=== PATIENT | female | born 1950 | race African-American/Black ===

== ENCOUNTER 2020-01-30 17:10 | Inpatient (IN) | payer MEDICARE ==
--- NOTE | 2020-01-30 17:33 | ER Document Report ---
ED General - General Chief Complaint: Shortness Of Breath Stated Complaint: SHORTNESS OF BREATH Time Seen by Provider: 01/30/20 17:32 Primary Care Provider: TIFFANY AYALA MD [Primary Care Provider] - Follow up as needed - [facility] Notes: 69-year-old female presents with shortness of breath. Patient states that she is diagnosed with Covid over a week ago, she has her swab results with her which were collected on 01/22. She reports that she has had shortness of breath the entire time she has been infected, there is progressively worsening and is at its worse today. She feels like her chest is tight and she cannot catch her breath. She has not had much to eat or drink as well. She states she has a hi story of COPD, diabetes and hypertension. She is a former smoker. She had a phone visit with her PCP today and was advised to come to the emergency department. - Related Data Allergies/Adverse Reactions: No Known Allergies Allergy (Verified 01/30/20 18:08) Past Medical History - General Information source: Patient - Social History Smoking Status: Former Smoker Family History: Reviewed & Not Pertinent Review of Systems - Review of Systems Constitutional: Fever EENT: No symptoms reported Cardiovascular: denies: Chest pain Respiratory: Cough, Short of breath Gastrointestinal: denies: Abdominal pain Genitourinary: No symptoms reported Female Genitourinary: No symptoms reported Musculoskeletal: Muscle pain Skin: No symptoms reported Hematologic/Lymphatic: No symptoms reported Neurological/Psychological: No symptoms reported Physical Exam - Vital signs Vitals: Temp Pulse Resp BP Pulse Ox 99.0 F 89 20 145/82 H 81 L 01/30/20 17:26 01/30/20 17:26 01/30/20 17:26 01/30/20 17:26 01/30/20 17:26 - General General appearance: Alert In distress: Moderate - HEENT Head: Normocephalic, Atraumatic Extraocular movements intact: Yes Pupils: PERRL Neck: Supple - Respiratory Respiratory status: Tachypnea Chest status: Nontender Breath sounds: Wheezing - Generalized Notes: Able to speak in full sentences though she does become visibly more short of breath - Cardiovascular Rhythm: Regular Heart sounds: Normal auscultation - Abdominal Inspection: Obese Tenderness: Nontender - Extremities General lower extremity: No: Edema - Neurological Neuro grossly intact: Yes Cognition: Normal Orientation: AAOx4 - Psychological Associated symptoms: Normal affect - Skin Skin Temperature: Warm Course - Re-evaluation Re-evalutation: 69-year-old female diagnosed with Covid on 01/22, here with progressively worsening shortness of breath. Has history of COPD, diabetes and hypertension. On exam she has diffuse wheezing, she appears visibly short of breath. She was hypoxic 81% on room air. Nasal cannula was applied and sats improved, she does not wear oxygen at home. Suspect that the Covid is causing a COPD exacerbation. Will start with duo nebs, Decadron and magnesium. Would be a candidate for a superimposed pneumonia, check chest x-ray. 01/30/20 19:07 ElectraNo leukocytosis or left shift lites within normal limits. Creatinine within normal limits. Mild transaminitis. Elevated CRP and D-dimer, these are likely reflective of her known Covid infection, however given the hypoxia have ordered a CT chest to assure that no PE is present. Patient will still require admission regardless of result. 01/30/20 19:[address] Li for admission - Vital Signs Vital signs: Temp Pulse Resp BP Pulse Ox 99.0 F 89 20 145/82 H 97 01/30/20 17:26 01/30/20 17:26 01/30/20 18:00 01/30/20 17:26 01/30/20 18:00 - Laboratory Result Diagrams: 01/30/20 17:43 01/30/20 17:43 Laboratory results interpreted by me: 01/30/20 01/30/20 01/30/20 17:43 17:43 17:43 Hct 35.9 L RDW 14.7 H D-Dimer 3.19 H AST 100 H ALT 57 H C-Reactive Protein 242.1 H - Diagnostic Test Radiology reviewed: Image reviewed, Reports reviewed - EKG Interpretation by Me Additional EKG results interpreted by me: EKG is interpreted by me. Sinus rhythm, rate 80. Narrow QRS, borderline prolon ged QT interval. Nonspecific ST changes. No STEMI. Discharge - Discharge Clinical Impression: Acute respiratory disease due to COVID-19 virus, COPD exacerbation Disposition: ADMITTED INPATIENT Admitting Provider: Guillermo (Hospitalist) Unit Admitted: Telemetry Referrals: TIFFANY AYALA MD [Primary Care Provider] - Follow up as needed
[2020-01-30] MEDS ORDERED: DEXAMETHASONE SOD PHOSPHATE INJ 4 MG/1 ML VIAL IV ONE (17:40)
[2020-01-30] MEDS ORDERED: IPRATROPIUM/ALBUTEROL 0.5-2.5 MG/3 ML AMPUL NEB ONE ×2 (17:40→19:02)
[2020-01-30] MEDS ORDERED: MAGNESIUM SULFATE/D5W 1 GM/100 ML RTUPB IV ONE (17:41)
[2020-01-30 18:08] LABS: ABSOLUTE BASOPHILS # (AUTO) 0.1 10^3/uL (0.0-0.2); ABSOLUTE EOSINOPHILS # (AUTO) 0.2 10^3/uL (0.0-0.6); ABSOLUTE LYMPHOCYTES (AUTO) 2.6 10^3/uL (0.5-4.7); ABSOLUTE NEUT (AUTO) 6.4 10^3/uL (1.7-8.2); BASOPHILS % (AUTO) 0.7 % (0-2); EOSINOPHILS % (AUTO) 1.7 % (0-6); HEMATOCRIT 35.9 % (36.0-47.0); HEMOGLOBIN 12.5 g/dL (12.0-15.5); LYMPHOCYTES % (AUTO) 25.6 % (13-45); MEAN CORPUSCULAR HEMOGLOBIN 28.8 pg (27.0-33.4); MEAN CORPUSCULAR HGB CONC 34.8 g/dL (32.0-36.0); MEAN CORPUSCULAR VOLUME 83 fl (80-97); MONOCYTES % (AUTO) 10.1 % (3-13); PLATELET COUNT 439 10^3/uL (150-450); RED BLOOD COUNT 4.34 10^6/uL (3.72-5.28); RED CELL DISTRIBUTION WIDTH 14.7 % (11.5-14.0); SEGMENTED NEUTROPHILS % (AUTO) 61.9 % (42-78); TOTAL CELLS COUNTED % (AUTO) 100 %; WHITE BLOOD COUNT 10.3 10^3/uL (4.0-10.5)
[2020-01-30 18:27] LABS: ALBUMIN 3.8 g/dL (3.5-5.0); ALKALINE PHOSPHATASE 99 U/L (38-126); ANION GAP 8 (5-19); ASPARTATE AMINO TRANSFERASE 100 U/L (14-36); BILIRUBIN,DIRECT 0.3 mg/dL (0.0-0.4); BILIRUBIN,TOTAL 0.6 mg/dL (0.2-1.3); BLOOD UREA NITROGEN 12 mg/dL (7-20); CARBON DIOXIDE 28 mmol/L (22-30); CHLORIDE 107 mmol/L (98-107); GLUCOSE 90 mg/dL (75-110); POTASSIUM 3.9 mmol/L (3.6-5.0); TOTAL PROTEIN 7.6 g/dL (6.3-8.2)
[2020-01-30 18:38] LABS: C-REACTIVE PROTEIN 242.1 mg/L (<10.0)
--- NOTE | 2020-01-30 18:47 | RADIOLOGY REPORT (SQ) ---
EXAM DESCRIPTION: CHEST SINGLE VIEW IMAGES COMPLETED DATE/TIME: 01/30/2020 5:59 pm REASON FOR STUDY: shortness of breath COMPARISON: None. EXAM PARAMETERS: NUMBER OF VIEWS: One view. TECHNIQUE: Single frontal radiographic view of the chest acquired. RADIATION DOSE: NA LIMITATIONS: None. FINDINGS: LUNGS AND PLEURA: Slight haziness in the left lower lung field. MEDIASTINUM AND HILAR STRUCTURES: No masses. Contour normal. HEART AND VASCULAR STRUCTURES: Heart normal in size. Normal vasculature. BONES: No acute findings. HARDWARE: None in the chest. OTHER: No other significant finding. IMPRESSION: Cannot exclude pneumonia in the left lower lung field. TECHNICAL DOCUMENTATION: JOB ID: [id number] 2010 [employer]- All Rights Reserved Reading location - IP/workstation name: [email or web address]
--- NOTE | 2020-01-30 19:49 | EKG REPORT ---
SEVERITY:- BORDERLINE ECG - SINUS RHYTHM BORDERLINE T WAVE ABNORMALITIES BORDERLINE PROLONGED QT INTERVAL : Confirmed by: Js Felix MD 30-Jan-2020 19:49:02
--- NOTE | 2020-01-30 20:06 | RADIOLOGY REPORT (SQ) ---
EXAM DESCRIPTION: CTA CHEST IMAGES COMPLETED DATE/TIME: 01/30/2020 7:46 pm REASON FOR STUDY: +COVID, hypoxia, eval PE COMPARISON: Chest x-ray 01/30/2020 TECHNIQUE: CT scan of the chest performed using helical scanning technique with dynamic intravenous contrast injection. Images reviewed with lung, soft tissue and bone windows. Reconstructed coronal and sagittal MPR images reviewed. Additional 3 dimensional post-processing performed to develop Maximal Intensity Projection images ([place] P). All images stored on PACS. All CT scanners at this facility use dose modulation, iterative reconstruction, and/or weight based d osing when appropriate to reduce radiation dose to as low as reasonably achievable (ALARA). [facility]: Dose Right [facility]: CareDose [facility]: Dose Right [facility]: Teradose 4D [facility]: [email or web address] CONTRAST TYPE AND DOSE: contrast/concentration: Isovue 350.00 mmol/ml; Total Contrast Delivered: 75. 0 ml; Total Saline Delivered: 75.0 ml Contrast bolus adequate for pulmonary arteries and aorta. RENAL FUNCTION: BUN 12 creatinine 0.78 RADIATION DOSE: CT Rad equipment meets quality standard of care and radiation dose reduction techniq ues were employed. CTDIvol: 19.8 - 22.0 mGy. DLP: 794 mGy-cm. . LIMITATIONS: None. FINDINGS: LUNGS AND PLEURA: There are patchy ground-glass infiltrates superimposed on chronic inters titial changes bilaterally. AORTA AND GREAT VESSELS: No aneurysm. No dissection. HEART: No pericardial effusion. No significant coronary artery calcifications. PULMONARY ARTERIES: No emboli visualized in the main pulmonary arteries or the segmental branches. HILAR AND MEDIASTINAL STRUCTURES: No identified masses or abnormal nodes. HARDWARE: None in the chest. UPPER ABDOMEN: Large cyst on the upper pole the right kidney. THYROID AND OTHER SOFT TISSUES: No masses. No adenopathy. BONES: No acute or significant finding. 3D MIPS: Confirm above findings. OTHER: No other significant finding. IMPRESSION: 1. Bilateral ground-glass infiltrates suggestive of an atypical infectious/ inflammator y process, consistent with COVID-19. 2. No pulmonary embolus. No aortic aneurysm or dissection. COMMENT: Quality ID # [id number]: Final reports with documentation of one or more dose reduction techniques (e.g., Automated exposure control, adjustment of the mA and/or kV according to patient size, use of iterative reconstruction technique) TECHNICAL DOCUMENTATION: JOB ID: [id number] 2010 [employer]- All Rights Reserved Reading location - IP/workstation name: [email or web address]
[2020-01-30] MEDS ORDERED: DEXTROSE 50%-WATER 25 GM/50 ML DISP.SYRIN IV PRN ×2 (20:51)
[2020-01-30] MEDS ORDERED: GLUCAGON,HUMAN RECOMB 1 MG INJ IM PRN (20:51)
[2020-01-30] MEDS ORDERED: DEXTROSE 40% GEL 15 GM TUBE PO PRN ×2 (20:51)
--- NOTE | 2020-01-30 21:04 | PDOC H&P ---
History of Present Illness Admission Date/PCP: 01/30/20 19:51 TIFFANY GEORGE MD History of Present Illness: MARCEL GAVIRIA is a 69 year old female who is a very poor historian but she knows she has diabetes and COPD, she does not know what medicine she takes. She presents today to the ER because of progressive shortness of breath. She said her symptoms started about a week ago and on 22 January she went to her primary care provider's office, Dr. George at [facility] in [place], where she got tested and the results were positive for coronavirus. Her shortness of breath started about 5 days ago. Initially her symptoms were just nausea and 1 or 2 episodes of vomiting. Shortness of breath has been increasing and so she called her doctor's office today and they recommended she come to the hospital. Her pulse oximetry on room air at her initial presentation was 81%. Patient says she was febrile at home with a temperature of 101 Fahrenheit but was afebrile here. She had a possible opacity on her chest x-ray of the left lower lobe, chest CT confirmed bilateral groundglass opacities in the lower lobes. Prior to her initial presentation here, she has not received any outpatient treatment. Pulse oximetry currently 95% on 4 L. Past Medical History Cardiac Medical History: Reports: Hyperlipidema, Hypertension Pulmonary Medical History: Reports: Chronic Obstructive Pulmonary Disease (COPD) Endocrine Medical History: Reports: Diabetes Mellitus Type 2 Past Surgical History Past Surgical History: Reports: Hysterectomy, Orthopedic Surgery - RTKR Social History Smoking Status: Former Smoker Electronic Cigarette use?: No Family History Family History: Reviewed & Not Pertinent Parental Family History Reviewed: No - Patient does not know Children Family History Reviewed: Unknown Sibling(s) Family History Reviewed.: Unknown Medication/Allergy Allergies/Adverse Reactions: No Known Allergies Allergy (Verified 01/30/20 18:08) Review of Systems All systems: reviewed and no additional remarkable complaints except as stated - All systems were reviewed and were negative except as noted in the HPI Physical Exam Vital Signs: Temp Pulse Resp BP Pulse Ox 99.0 F 89 23 H 136/100 H 93 01/30/20 17:26 01/30/20 17:26 01/30/20 19:06 01/30/20 19:06 01/30/20 19:06 Intake & Output 1101/30/20 01/31/20 06:59 06:59 06:59 Intake Total 100 Balance 100 Weight 85.729 kg General appearance: PRESENT: no acute distress, cooperative, disheveled, obese Head exam: PRESENT: atraumatic, normocephalic Eye exam: PRESENT: EOMI, PERRLA. ABSENT: conjunctival injection, nystagmus, scleral icterus Ear exam: PRESENT: normal external ear exam Neck exam: PRESENT: full ROM. ABSENT: carotid bruit, JVD, lymphadenopathy, meningismus, tenderness, thyromegaly Respiratory exam: PRESENT: crackles - Bibasilar, symmetrical, unlabored. ABSENT: accessory muscle use, chest wall tenderness, prolonged expiratory phas, rhonchi, tachypnea, wheezes Cardiovascular exam: PRESENT: RRR, +S1, +S2 Pulses: PRESENT: normal carotid pulses Vascular exam: PRESENT: normal capillary refill GI/Abdominal exam: PRESENT: normal bowel sounds, soft. ABSENT: distended, guarding, rebound, tenderness Extremities exam: ABSENT: clubbing, pedal edema Musculoskeletal exam: PRESENT: normal inspection. ABSENT: deformity Neurological exam: PRESENT: awake, oriented to person, oriented to place, oriented to situation, CN II-XII grossly intact. ABSENT: motor sensory deficit Psychiatric exam: PRESENT: flat affect Skin exam: PRESENT: dry, warm Results Laboratory Results: 01/30/20 17:43 01/30/20 17:43 01/30/20 01/30/20 17:43 17:43 WBC 10.3 RBC 4.34 Hgb 12.5 Hct 35.9 L MCV 83 MCH 28.8 MCHC 34.8 RDW 14.7 H Plt Count 439 Seg Neutrophils % 61.9 Sodium 142.9 Potassium 3.9 Chloride 107 Carbon Dioxide 28 Anion Gap 8 BUN 12 Creatinine 0.78 Est GFR ( Amer) > 60 Glucose 90 Calcium 9.0 Ferritin 228.00 Total Bilirubin 0.6 AST 100 H Alkaline Phosphatase 99 C-Reactive Protein 242.1 H Total Protein 7.6 Albumin 3.8 Impressions: Chest X-Ray 01/30/20 17:29 IMPRESSION: Cannot exclude pneumonia in the left lower lung field. Chest/Abdomen CTA 01/30/20 18:25 IMPRESSION: 1. Bilateral ground-glass infiltrates suggestive of an atypical infectious/ inflammatory process, consistent with COVID-19. 2. No pulmonary embolus. No aortic aneurysm or dissection. 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 Currently on supplemental oxygen, will continue to monitor and wean as tolerated. We'll start her on de xamethasone and remdesivir. We'll empirically start a sliding scale until we can find out what her home regimen is like for her diabetes. D-dimer was greater than 3, so we have started her on therapeutic anticoagulation. We'll keep her on telemetry. Currently appears stable. Will monitor and adjust treatment pending her real-time clinical scenario. - Time Time Spent with patient: 25-34 minutes Anticipated Discharge Disposition: Unknown Anticipated Discharge Timeframe: Unknown - Inpatient Certification Based on my medical assessment, after consideration of the patient's com orbidities, presenting symptoms, or acuity I expect that the services needed warrant INPATIENT care.: Yes I certify that my determination is in accordance with my understanding of Medicare's requirements for reasonable and necessary INPATIENT services [42 CFR 412.3e].: Yes Medical Necessity: Significant Comorbidiites Make Outpatient Treatment Too Risky, Need Close Monitoring Due to Risk of Patient Decompensation, Need For Continuous Telemetry Monitoring, Need for IV Antibiotics, Risk of Complication if Not Cared For in Hospital
[2020-01-30] MEDS: ASCORBIC ACID 500 MG TABLET PO SCH (21:53)
[2020-01-30] MEDS ORDERED: ENOXAPARIN SODIUM INJ 40 MG/0.4 ML DISP.SYRIN SUBCUT SCH (22:00)
[2020-01-30 22:12] LABS: APPEARANCE,URINE CLEAR; BILIRUBIN,URINE NEGATIVE (NEGATIVE); COLOR,URINE YELLOW; GLUCOSE, URINE NEGATIVE (NEGATIVE); KETONES,URINE NEGATIVE (NEGATIVE); LEUKOCYTE ESTERASE,URINE NEGATIVE (NEGATIVE); NITRITE,URINE NEGATIVE (NEGATIVE); PROTEIN,URINE 30 mg/dL (NEGATIVE)
[2020-01-30 22:28] LABS: URINE SPECIFIC GRAVITY > 1.060
[2020-01-30] MEDS: ENOXAPARIN SODIUM INJ 100 MG/1 ML DISP.SYRIN SUBCUT SCH (22:48)
[2020-01-30] MEDS: ONDANSETRON HCL INJ/PF 4 MG/2 ML SDV IV PRN (22:48)
[2020-01-30] MEDS: INSULIN LISPRO 100 UNIT/ML 3 ML VIAL SUBCUT SCH (22:48)
[2020-01-30] MEDS: ACETAMINOPHEN 325 MG TABLET PO PRN (22:50)
[2020-01-30] MEDS ORDERED: REMDESIVIR 200 MG in NORMAL SALINE 250 ML IV ONE (23:00)
[2020-01-31 06:19] LABS: ABSOLUTE LYMPHOCYTES (AUTO) 1.5 10^3/uL (0.5-4.7); ABSOLUTE MONOCYTES (AUTO) 0.7 10^3/uL (0.1-1.4); ABSOLUTE NEUT (AUTO) 6.1 10^3/uL (1.7-8.2); BASOPHILS % (AUTO) 0.6 % (0-2); HEMATOCRIT 34.6 % (36.0-47.0); HEMOGLOBIN 11.8 g/dL (12.0-15.5); LYMPHOCYTES % (AUTO) 17.7 % (13-45); MEAN CORPUSCULAR HEMOGLOBIN 28.2 pg (27.0-33.4); MEAN CORPUSCULAR VOLUME 83 fl (80-97); MONOCYTES % (AUTO) 8.4 % (3-13); PLATELET COUNT 426 10^3/uL (150-450); RED BLOOD COUNT 4.18 10^6/uL (3.72-5.28); RED CELL DISTRIBUTION WIDTH 14.5 % (11.5-14.0); SEGMENTED NEUTROPHILS % (AUTO) 73.3 % (42-78); TOTAL CELLS COUNTED % (AUTO) 100 %; WHITE BLOOD COUNT 8.4 10^3/uL (4.0-10.5)
[2020-01-31 06:41] LABS: ALBUMIN 3.4 g/dL (3.5-5.0); ALKALINE PHOSPHATASE 95 U/L (38-126); ANION GAP 9 (5-19); ASPARTATE AMINO TRANSFERASE 75 U/L (14-36); BILIRUBIN,DIRECT 0.2 mg/dL (0.0-0.4); BILIRUBIN,TOTAL 0.4 mg/dL (0.2-1.3); BLOOD UREA NITROGEN 10 mg/dL (7-20); CALCIUM 8.6 mg/dL (8.4-10.2); CARBON DIOXIDE 24 mmol/L (22-30); CHLORIDE 109 mmol/L (98-107); GLUCOSE 150 mg/dL (75-110); POTASSIUM 4.3 mmol/L (3.6-5.0); TOTAL PROTEIN 7.2 g/dL (6.3-8.2)
[2020-01-31 06:56] LABS: C-REACTIVE PROTEIN 224.9 mg/L (<10.0)
[2020-01-31] MEDS: INSULIN LISPRO 100 UNIT/ML 3 ML VIAL SUBCUT SCH ×4 (08:22→22:12)
[2020-01-31] MEDS: ASCORBIC ACID 500 MG TABLET PO SCH ×2 (09:38→17:19)
[2020-01-31] MEDS: ENOXAPARIN SODIUM INJ 100 MG/1 ML DISP.SYRIN SUBCUT SCH ×2 (09:38→22:11)
[2020-01-31] MEDS: DEXAMETHASONE SOD PHOSPHATE INJ 4 MG/1 ML VIAL IV SCH (09:39)
[2020-01-31] MEDS ORDERED: CEFTRIAXONE 1 GM/D5W RTU 1 GM/50 ML RTUPB IV SCH (10:00)
[2020-01-31] MEDS ORDERED: DEXAMETHASONE SOD PHOS INJ 10 MG/1 ML VIAL IV SCH (10:00)
[2020-01-31] MEDS: AZITHROMYCIN 500 MG in DEXTROSE 5%-WATER 250 ML IV SCH (10:08)
[2020-01-31 11:12] LABS: APPEARANCE,URINE SLIGHTLY-CLOUDY; BILIRUBIN,URINE NEGATIVE (NEGATIVE); COLOR,URINE YELLOW; GLUCOSE, URINE NEGATIVE (NEGATIVE); KETONES,URINE NEGATIVE (NEGATIVE); LEUKOCYTE ESTERASE,URINE NEGATIVE (NEGATIVE); NITRITE,URINE NEGATIVE (NEGATIVE); PROTEIN,URINE 100 mg/dL (NEGATIVE); URINE SPECIFIC GRAVITY 1.054
[2020-01-31] MEDS ORDERED: MAG HYDROX/AL HYDROX/SIMETH SUSP 30 ML UDCUP PO PRN (15:46)
[2020-01-31] MEDS ORDERED: AMLODIPINE BESYLATE 5 MG TABLET PO ONE (15:51)
[2020-01-31] MEDS ORDERED: FAMOTIDINE 20 MG TABLET PO SCH (16:00)
--- NOTE | 2020-01-31 16:29 | PDOC PROGRESS REPORT ---
Subjective Date:: 01/31/20 Subjective:: c/o sob and abdominal pain Reason For Visit: ACUTE HYPOXEMIC RESPIRATORY FAILURE, PNEUMONIA Physical Exam Vital Signs: Temp Pulse Resp BP Pulse Ox 97.8 F 85 22 H 143/76 H 91 L 01/31/20 12:00 01/31/20 13:41 01/31/20 12:00 01/31/20 12:00 01/31/20 12:00 Intake & Output 01/30/20 01/31/20 02/01/20 06:59 06:59 06:59 Intake Total 100 300 Balance 100 300 Weight 82.1 kg General appearance: PRESENT: no acute distress, cooperative Neck exam: ABSENT: JVD Respiratory exam: PRESENT: crackles, symmetrical, unlabored. ABSENT: tachypnea, wheezes Cardiovascular exam: PRESENT: RRR, +S1, +S2. ABSENT: tachycardia GI/Abdominal exam: PRESENT: guarding, soft, tenderness. ABSENT: firm, hernia, rebound, rigid Neurological exam: PRESENT: alert, awake, oriented to person, oriented to place, oriented to time Results Laboratory Results: 01/31/20 05:30 01/31/20 05:30 01/30/20 01/30/20 01/30/20 17:43 17:43 22:00 WBC 10.3 RBC 4.34 Hgb 12.5 Hct 35.9 L MCV 83 MCH 28.8 MCHC 34.8 RDW 14.7 H Plt Count 439 Seg Neutrophils % 61.9 Sodium 142.9 Potassium 3.9 Chloride 107 Carbon Dioxide 28 Anion Gap 8 BUN 12 Creatinine 0.78 Est GFR ( Amer) > 60 Glucose 90 Calcium 9.0 Ferritin 228.00 Total Bilirubin 0.6 AST 100 H Alkaline Phosphatase 99 C-Reactive Protein 242.1 H Total Protein 7.6 Albumin 3.8 Urine Color YELLOW Urine Appearance CLEAR Urine pH 6.0 Ur Specific [place]by > 1.060 Urine Protein 30 H Urine Glucose (UA) NEGATIVE Urine Ketones NEGATIVE Urine Blood NEGATIVE Urine Nitrite NEGATIVE Ur Leukocyte Esterase NEGATIVE Urine WBC (Auto) 0 Urine RBC (Auto) 0 01/31/20 01/31/20 01/31/20 05:30 05:30 10:53 WBC 8.4 RBC 4.18 Hgb 11.8 L Hct 34.6 L MCV 83 MCH 28.2 MCHC 34.0 RDW 14.5 H Plt Count 426 Seg Neutrophils % 73.3 Sodium 142.4 Potassium 4.3 Chloride 109 H Carbon Dioxide 24 Anion Gap 9 BUN 10 Creatinine 0.62 Est GFR ( Amer) > 60 Glucose 150 H Calcium 8.6 Ferritin 206.00 Total Bilirubin 0.4 AST 75 H Alkaline Phosphatase 95 C-Reactive Protein 224.9 H Total Protein 7.2 Albumin 3.4 L Urine Color YELLOW Urine Appearance SLIGHTLY-CLOUDY Urine pH 5.0 Ur Specific Mosby 1.054 Urine Protein 100 H Urine Glucose (UA) NEGATIVE Urine Ketones NEGATIVE Urine Blood NEGATIVE Urine Nitrite NEGATIVE Ur Leukocyte Esterase NEGATIVE Urine WBC (Auto) 1 Urine RBC (Auto) 0 Impressions: Chest X-Ray 01/30/20 17:29 IMPRESSION: Cannot exclude pneumonia in the left lower lung field. Chest/Abdomen CTA 01/30/20 18:25 IMPRESSION: 1. Bilateral ground-glass infiltrates suggestive of an atypical infectious/ inflammatory process, consistent with COVID-19. 2. No pulmonary embolus. No aortic aneurysm or dissection. Assessment and Plan - Diagnosis (1) Pneumonia due to COVID-19 virus Is this a current diagnosis for this admission?: Yes Plan: Remdesivir day 1 Dexamethasone day 1 Azithromycin Covalascent plasma therapeutic Lovenox as D-dimer is elevated (2) Acute respiratory failure with hypoxia Is this a current diagnosis for this admission?: Yes Plan: Continue p.o. secondary to COVID-19 pneumonia. (3) Abdominal pain Qualifiers: Abdominal location: generalized Qualified Code(s): R10.84 - Generalized abdominal pain Is this a current diagnosis for this admission?: Yes Plan: Abdominal pain seems very nonspecific in nature. Has voluntary guarding but no rigidity. We will put on GI prophylaxis. We will check a CT of her abdomen/pelvis. (4) COPD (chronic obstructive pulmonary disease) Qualifiers: COPD type: chronic bronchitis Chronic bronchitis type: simple Qualified Code(s): J41.0 - Simple chronic bronchitis Is this a current diagnosis for this admission?: Yes Plan: Not acutely exacerbated. Albuterol inhaler. (5) Diabetes mellitus Qualifiers: Diabetes mellitus type: type 2 Diabetes mellitus director long term care insulin use: with chcf use Diabetes mellitus complication status: without complication Qualified Code(s): E11.9 - Type 2 diabetes mellitus without complications; Z79.4 - watermelon harvesting supervisor (current) use of insulin Is this a current diagnosis for this admission?: Yes Plan: Sliding scale insulin and Accu-Cheks. Metformin on hold. (6) Hypertension Qualifiers: Hypertension type: essential hypertension Qualified Code(s): I10 - Essential (primary) hypertension Is this a current diagnosis for this admission?: Yes Plan: amlodipine and lisinopril - Time Time Spent with patient: 15-24 minutes Anticipated Discharge Disposition: Home, Self Care Anticipated Discharge Timeframe: unknown
[2020-01-31] MEDS: VARENICLINE TARTRATE 1 MG TABLET PO SCH (17:19)
[2020-01-31] MEDS: ZINC SULFATE 220 MG CAPSULE PO SCH (17:19)
[2020-01-31] MEDS: LISINOPRIL 10 MG TABLET PO SCH (17:19)
[2020-01-31] MEDS: ROPINIROLE HCL 0.25 MG TABLET PO SCH (17:19)
[2020-01-31] MEDS: ALBUTEROL SULFATE HFA (90 MCG/PUFF) 8 GM MDI IH SCH (17:22)
[2020-01-31] MEDS: ACETAMINOPHEN 325 MG TABLET PO PRN (17:23)
[2020-01-31] MEDS: ONDANSETRON HCL INJ/PF 4 MG/2 ML SDV IV PRN (17:24)
[2020-01-31] MEDS ORDERED: ALBUTEROL SULFATE HFA (90 MCG/PUFF) 8 GM MDI (1 MDI/ER DISP) IH SCH (18:00)
[2020-01-31] MEDS: MORPHINE SULFATE 10 MG/ML INJ IV PRN (20:41)
[2020-01-31] MEDS: GABAPENTIN 300 MG CAPSULE PO SCH (22:10)
[2020-01-31] MEDS: REMDESIVIR 100 MG in NORMAL SALINE 250 ML IV SCH (22:10)
[2020-02-01] MEDS: ALBUTEROL SULFATE HFA (90 MCG/PUFF) 8 GM MDI IH SCH ×4 (01:33→17:26)
[2020-02-01] MEDS: MORPHINE SULFATE 10 MG/ML INJ IV PRN ×2 (05:31→10:36)
[2020-02-01] MEDS: GABAPENTIN 300 MG CAPSULE PO SCH ×3 (05:31→23:42)
[2020-02-01 07:00] LABS: ABSOLUTE BASOPHILS # (AUTO) 0.1 10^3/uL (0.0-0.2); ABSOLUTE LYMPHOCYTES (AUTO) 3.1 10^3/uL (0.5-4.7); BASOPHILS % (AUTO) 0.5 % (0-2); HEMATOCRIT 34.1 % (36.0-47.0); HEMOGLOBIN 11.6 g/dL (12.0-15.5); MEAN CORPUSCULAR HEMOGLOBIN 28.1 pg (27.0-33.4); MEAN CORPUSCULAR HGB CONC 34.1 g/dL (32.0-36.0); MEAN CORPUSCULAR VOLUME 83 fl (80-97); MONOCYTES % (AUTO) 10.8 % (3-13); PLATELET COUNT 498 10^3/uL (150-450); RED BLOOD COUNT 4.14 10^6/uL (3.72-5.28); RED CELL DISTRIBUTION WIDTH 14.6 % (11.5-14.0); SEGMENTED NEUTROPHILS % (AUTO) 71.7 % (42-78); TOTAL CELLS COUNTED % (AUTO) 100 %
[2020-02-01 07:03] LABS: WHITE BLOOD COUNT 18.1 10^3/uL (4.0-10.5)
[2020-02-01 07:12] LABS: ALBUMIN 3.6 g/dL (3.5-5.0); ALKALINE PHOSPHATASE 88 U/L (38-126); ANION GAP 12 (5-19); ASPARTATE AMINO TRANSFERASE 106 U/L (14-36); BILIRUBIN,DIRECT 0.3 mg/dL (0.0-0.4); BILIRUBIN,TOTAL 0.5 mg/dL (0.2-1.3); BLOOD UREA NITROGEN 13 mg/dL (7-20); C-REACTIVE PROTEIN 66.3 mg/L (<10.0); CALCIUM 8.8 mg/dL (8.4-10.2); CARBON DIOXIDE 23 mmol/L (22-30); CHLORIDE 109 mmol/L (98-107); GLUCOSE 99 mg/dL (75-110); POTASSIUM 4.6 mmol/L (3.6-5.0); TOTAL PROTEIN 7.3 g/dL (6.3-8.2)
[2020-02-01] MEDS: INSULIN LISPRO 100 UNIT/ML 3 ML VIAL SUBCUT SCH ×4 (08:02→23:43)
--- NOTE | 2020-02-01 08:26 | RADIOLOGY REPORT (SQ) ---
EXAM DESCRIPTION: CT ABD/PELVIS WITH IV ORAL IMAGES COMPLETED DATE/TIME: 01/31/2020 9:52 pm REASON FOR STUDY: abdominal pain COMPARISON: CT of the chest with contrast from 01/30/2020. TECHNIQUE: CT scan of the abdomen and pelvis performed using helical scanning technique with dynamic intravenous contrast injection. No oral contrast. Images reviewed with lung, soft tissue, and bone windows. Reconstructed coronal and sagittal MPR images reviewed. Delayed images for evaluation of the urinary system also acquired. All images stored on PACS. All CT scanners at this facility use dose modulation, iterative reconstruction, and/or weight based d osing when appropriate to reduce radiation dose to as low as reasonably achievable (ALARA). [facility]: Dose Right [facility]: CareDose [facility]: Dose Right [facility]: Teradose 4D [facility]: [employer] CONTRAST TYPE AND DOSE: contrast/concentration: Isovue 350.00 mmol/ml; Total Contrast Delivered: 94. 0 ml; Total Saline Delivered: 41.0 ml RENAL FUNCTION: GFR > 60. RADIATION DOSE: CT Rad equipment meets quality standard of care and radiation dose reduction techniq ues were employed. CTDIvol: 10.0 mGy. DLP: 1022 mGy-cm.. LIMITATIONS: None. FINDINGS: LOWER CHEST: Improved bilateral peripheral ground-glass opacities. LIVER: The morphology of the liver is noncirrhotic. The portal veins are patent. There is no hepati c mass. SPLEEN: No splenomegaly or splenic mass. PANCREAS: No acute gross abnormality of the pancreas. GALLBLADDER: No acute gross abnormality of the gallbladder. ADRENAL GLANDS: No mass or asymmetry. RIGHT KIDNEY AND URETER: 6.4 x 6.1 cm exophytic cystic lesion that arises from the superior cortex of the upper pole of the kidney and has an internal attenuation off 14 Hounsfield units. The subcentim eter low-attenuation lesion in the anterior cortex of the interpolar portion of the kidney (image 44 of series 3) is considered too small to characterize. There is no hydronephrosis, nephrolithiasis, h ydroureter or ureterolithiasis. LEFT KIDNEY AND URETER: The subcentimeter low-attenuation lesion in the posterior cortex of the upper pole of the kidney (image 27 of series 3) is considered too small to characterize. There is no hydr onephrosis, nephrolithiasis, hydroureter or ureterolithiasis. AORTA AND VESSELS: Atherosclerotic calcification of the abdominal aorta and iliac arteries. RETROPERITONEUM: No retroperitoneal adenopathy, hemorrhage or mass. BOWEL AND PERITONEAL CAVITY: Colonic diverticulosis without diverticulitis. There is no bowel obstru ction, bowel wall thickening or pericolonic/ perienteric inflammation. There is no mesenteric adenop athy, free intraperitoneal fluid or mesenteric/ omental inflammation. APPENDIX: Normal. PELVIS: The uterus is surgically absent. The urinary bladder is contracted. There is no abnormality of the adnexa that is apparent on CT. ABDOMINAL WALL: No mass or hernia. BONES: Degenerative spondylosis of the lumbar spine. OTHER: No other findings. IMPRESSION: 1. No acute intra-abdominal abnormality. 2. Improved bilateral peripheral ground-glass opacities. 3. Colonic diverticulosis without diverticulitis. TECHNICAL DOCUMENTATION: JOB ID: [id number] Quality ID # [id number]: Final reports with documentation of one or more dose reduction techniques (e.g., Au tomated exposure control, adjustment of the mA and/or kV according to patient size, use of iterative reconstruction technique) 2010 [employer]- All Rights Reserved Reading location - IP/workstation name: [email or web address]
[2020-02-01] MEDS: VARENICLINE TARTRATE 1 MG TABLET PO SCH ×2 (10:27→17:25)
[2020-02-01] MEDS: DEXAMETHASONE SOD PHOSPHATE INJ 4 MG/1 ML VIAL IV SCH (10:27)
[2020-02-01] MEDS: PANTOPRAZOLE SODIUM 40 MG TABLET.DR PO SCH (10:27)
[2020-02-01] MEDS: ATORVASTATIN CALCIUM 40 MG TABLET PO SCH (10:27)
[2020-02-01] MEDS: AMLODIPINE BESYLATE 10 MG TABLET PO SCH (10:27)
[2020-02-01] MEDS: LISINOPRIL 10 MG TABLET PO SCH (10:27)
[2020-02-01] MEDS: CHOLECALCIFEROL (D3) 1,000 UNIT (25 MCG) TABLET PO SCH (10:27)
[2020-02-01] MEDS: ROPINIROLE HCL 0.25 MG TABLET PO SCH ×2 (10:27→17:25)
[2020-02-01] MEDS: ASCORBIC ACID 500 MG TABLET PO SCH ×2 (10:27→17:25)
[2020-02-01] MEDS: ENOXAPARIN SODIUM INJ 100 MG/1 ML DISP.SYRIN SUBCUT SCH ×2 (10:28→23:42)
[2020-02-01] MEDS: AZITHROMYCIN 500 MG in DEXTROSE 5%-WATER 250 ML IV SCH (10:28)
[2020-02-01] MEDS ORDERED: MORPHINE SULFATE 10 MG/ML INJ IV PRN (13:42)
--- NOTE | 2020-02-01 13:48 | PDOC PROGRESS REPORT ---
Subjective Date:: 02/01/20 Subjective:: c/o abdominal pain. Saturating adequately on room air today. Reason For Visit: ACUTE HYPOXEMIC RESPIRATORY FAILURE, PNEUMONIA Physical Exam Vital Signs: Temp Pulse Resp BP Pulse Ox 98.1 F 74 18 119/75 91 L 02/01/20 12:07 02/01/20 12:07 02/01/20 12:07 02/01/20 12:07 02/01/20 12:07 Intake & Output 01/31/20 02/01/20 02/02/20 06:59 06:59 06:59 Intake Total 100 910 250 Balance 100 910 250 Weight 82.1 kg 82.9 kg General appearance: PRESENT: no acute distress, cooperative Neck exam: ABSENT: JVD Respiratory exam: PRESENT: clear to auscultation tita, symmetrical, unlabored. ABSENT: tachypnea, wheezes Cardiovascular exam: PRESENT: RRR, +S1, +S2. ABSENT: tachycardia GI/Abdominal exam: PRESENT: soft, tenderness. ABSENT: distended, firm, rebound, rigid Neurological exam: PRESENT: alert, awake, oriented to person, oriented to place, oriented to time Psychiatric exam: PRESENT: anxious Results Laboratory Results: 02/01/20 05:47 02/01/20 05:47 01/31/20 02/01/20 02/01/20 05:30 05:47 05:47 WBC 18.1 H D RBC 4.14 Hgb 11.6 L Hct 34.1 L MCV 83 MCH 28.1 MCHC 34.1 RDW 14.6 H Plt Count 498 H Seg Neutrophils % 71.7 Sodium 143.8 Potassium 4.6 Chloride 109 H Carbon Dioxide 23 Anion Gap 12 BUN 13 Creatinine 0.65 Est GFR ( Amer) > 60 Glucose 99 Calcium 8.8 Ferritin 225.00 Total Bilirubin 0.5 AST 106 H Alkaline Phosphatase 88 C-Reactive Protein 66.3 H Total Protein 7.3 Albumin 3.6 Lipase 47.0 Impressions: Chest X-Ray 01/30/20 17:29 IMPRESSION: Cannot exclude pneumonia in the left lower lung field. Chest/Abdomen CTA 01/30/20 18:25 IMPRESSION: 1. Bilateral ground-glass infiltrates suggestive of an atypical infectious/ inflammatory process, consistent with COVID-19. 2. No pulmonary embolus. No aortic aneurysm or dissection. Abdomen/Pelvis CT 01/31/20 00:00 IMPRESSION: 1. No acute intra-abdominal abnormality. 2. Improved bilateral peripheral ground-glass opacities. 3. Colonic diverticulosis without diverticulitis. Assessment and Plan - Diagnosis (1) Pneumonia due to COVID-19 virus Is this a current diagnosis for this admission?: Yes Plan: Remdesivir day 2 Dexamethasone day 2 Azithromycin Covalascent plasma therapeutic Lovenox as D-dimer is elevated (2) Acute respiratory failure with hypoxia Is this a current diagnosis for this admission?: Yes Plan: Secondary to COVID-19 pneumonia. SPO2 level maintained in the low 90s on room air today. (3) Abdominal pain Qualifiers: Abdominal location: generalized Qualified Code(s): R10.84 - Generalized abdominal pain Is this a current diagnosis for this admission?: Yes Plan: Abdominal pain seems very nonspecific in nature. Has voluntary guarding but no rigidity. CT with contrast of the abdomen and pelvis was essentially unremarkable without anything to explain her pain. Transaminases are mildly elevated and the ratio is somewhat similar to alcohol induced. I do not know whether she drinks alcohol heavily or not I will have to talk to her about that further. If she does drink, she could be having gastritis. ALP and bilirubin are normal. Continue PPI. Add Carafate. Minimize morphine use. (4) COPD (chronic obstructive pulmonary disease) Qualifiers: COPD type: chronic bronchitis Chronic bronchitis type: simple Qualified Code(s): J41.0 - Simple chronic bronchitis Is this a current diagnosis for this admission?: Yes Plan: Not acutely exacerbated. Albuterol inhaler. 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 Metformin on hold. (7) Hypertension Qualifiers: Hypertension type: essential hypertension Qualified Code(s): I10 - Essential (primary) hypertension Is this a current diagnosis for this admission?: Yes Plan: amlodipine and lisinopril - Time Time Spent with patient: 15-24 minutes Anticipated Discharge Disposition: Home, Self Care Anticipated Discharge Timeframe: within 72 hours
[2020-02-01] MEDS ORDERED: POLYETHYLENE GLYCOL 3350 POWDER 17 GM/1 PACKET PO ONE (14:20)
[2020-02-01] MEDS: SUCRALFATE 1 GM TABLET PO SCH ×2 (15:07→23:42)
[2020-02-01] MEDS: ZINC SULFATE 220 MG CAPSULE PO SCH (17:25)
[2020-02-01] MEDS: REMDESIVIR 100 MG in NORMAL SALINE 250 ML IV SCH (23:42)
[2020-02-02] MEDS: ALBUTEROL SULFATE HFA (90 MCG/PUFF) 8 GM MDI IH SCH ×4 (03:28→17:22)
[2020-02-02] MEDS: SUCRALFATE 1 GM TABLET PO SCH ×3 (05:57→21:06)
[2020-02-02] MEDS: GABAPENTIN 300 MG CAPSULE PO SCH ×3 (05:57→21:06)
[2020-02-02 06:18] LABS: ABSOLUTE BASOPHILS # (AUTO) 0.1 10^3/uL (0.0-0.2); ABSOLUTE LYMPHOCYTES (AUTO) 2.7 10^3/uL (0.5-4.7); ABSOLUTE MONOCYTES (AUTO) 1.7 10^3/uL (0.1-1.4); ABSOLUTE NEUT (AUTO) 11.8 10^3/uL (1.7-8.2); BASOPHILS % (AUTO) 0.6 % (0-2); HEMATOCRIT 33.7 % (36.0-47.0); HEMOGLOBIN 11.2 g/dL (12.0-15.5); LYMPHOCYTES % (AUTO) 16.4 % (13-45); MEAN CORPUSCULAR HEMOGLOBIN 27.7 pg (27.0-33.4); MEAN CORPUSCULAR HGB CONC 33.4 g/dL (32.0-36.0); MEAN CORPUSCULAR VOLUME 83 fl (80-97); MONOCYTES % (AUTO) 10.5 % (3-13); PLATELET COUNT 556 10^3/uL (150-450); RED BLOOD COUNT 4.05 10^6/uL (3.72-5.28); RED CELL DISTRIBUTION WIDTH 14.9 % (11.5-14.0); SEGMENTED NEUTROPHILS % (AUTO) 72.5 % (42-78); TOTAL CELLS COUNTED % (AUTO) 100 %; WHITE BLOOD COUNT 16.3 10^3/uL (4.0-10.5)
[2020-02-02 06:38] LABS: ALBUMIN 3.6 g/dL (3.5-5.0); ALKALINE PHOSPHATASE 84 U/L (38-126); ANION GAP 11 (5-19); ASPARTATE AMINO TRANSFERASE 82 U/L (14-36); BILIRUBIN,DIRECT 0.2 mg/dL (0.0-0.4); BILIRUBIN,TOTAL 0.4 mg/dL (0.2-1.3); BLOOD UREA NITROGEN 18 mg/dL (7-20); C-REACTIVE PROTEIN 42.5 mg/L (<10.0); CALCIUM 8.8 mg/dL (8.4-10.2); CARBON DIOXIDE 25 mmol/L (22-30); CHLORIDE 108 mmol/L (98-107); GLUCOSE 108 mg/dL (75-110); POTASSIUM 4.5 mmol/L (3.6-5.0); TOTAL PROTEIN 7.4 g/dL (6.3-8.2)
[2020-02-02] MEDS: INSULIN LISPRO 100 UNIT/ML 3 ML VIAL SUBCUT SCH ×4 (07:47→22:42)
[2020-02-02] MEDS: PANTOPRAZOLE SODIUM 40 MG TABLET.DR PO SCH (08:04)
[2020-02-02] MEDS: POLYETHYLENE GLYCOL 3350 POWDER 17 GM/1 PACKET PO SCH (09:19)
[2020-02-02] MEDS: ENOXAPARIN SODIUM INJ 100 MG/1 ML DISP.SYRIN SUBCUT SCH ×2 (09:19→21:07)
[2020-02-02] MEDS: DEXAMETHASONE SOD PHOSPHATE INJ 4 MG/1 ML VIAL IV SCH (09:20)
[2020-02-02] MEDS: LISINOPRIL 10 MG TABLET PO SCH (09:21)
[2020-02-02] MEDS: ATORVASTATIN CALCIUM 40 MG TABLET PO SCH (09:21)
[2020-02-02] MEDS: ROPINIROLE HCL 0.25 MG TABLET PO SCH ×2 (09:21→17:10)
[2020-02-02] MEDS: CHOLECALCIFEROL (D3) 1,000 UNIT (25 MCG) TABLET PO SCH (09:21)
[2020-02-02] MEDS: ASCORBIC ACID 500 MG TABLET PO SCH ×2 (09:22→17:09)
[2020-02-02] MEDS: VARENICLINE TARTRATE 1 MG TABLET PO SCH ×2 (09:22→17:10)
[2020-02-02] MEDS: AMLODIPINE BESYLATE 10 MG TABLET PO SCH (09:22)
[2020-02-02] MEDS: AZITHROMYCIN 500 MG in DEXTROSE 5%-WATER 250 ML IV SCH (10:40)
--- NOTE | 2020-02-02 13:03 | PDOC PROGRESS REPORT ---
Subjective Date:: 02/02/20 Subjective:: Gets dyspneic on exertion when she ambulates to the bathroom. Otherwise feels r elatively well. Abdominal pain has improved and she has not required any morphine. She still complains of not having a bowel movement. She received MiraLAX yesterday and 1 this morning. Her sister was on the phone during the time of our current discussion. Reason For Visit: ACUTE HYPOXEMIC RESPIRATORY FAILURE, PNEUMONIA Physical Exam Vital Signs: Temp Pulse Resp BP Pulse Ox 98.2 F 74 18 128/64 H 93 02/02/20 11:41 02/02/20 11:41 02/02/20 11:41 02/02/20 11:41 02/02/20 11:41 Intake & Output 02/01/20 02/02/20 02/03/20 06:59 06:59 06:59 Intake Total 910 500 250 Balance 910 500 250 Weight 82.9 kg 83.1 kg General appearance: PRESENT: no acute distress, cooperative Neck exam: ABSENT: JVD Respiratory exam: PRESENT: symmetrical, unlabored, wheezes - Mild end expiratory bilateral. ABSENT: accessory muscle use, retraction, tachypnea Cardiovascular exam: PRESENT: RRR, +S1, +S2. ABSENT: tachycardia GI/Abdominal exam: PRESENT: soft. ABSENT: rebound, rigid, tenderness Neurological exam: PRESENT: alert, awake, oriented to person, oriented to place, oriented to time Results Laboratory Results: 02/02/20 05:07 02/02/20 05:07 01/31/20 02/02/20 02/02/20 17:15 05:07 05:07 WBC 16.3 H RBC 4.05 Hgb 11.2 L Hct 33.7 L MCV 83 MCH 27.7 MCHC 33.4 RDW 14.9 H Plt Count 556 H Seg Neutrophils % 72.5 Sodium 143.9 Potassium 4.5 Chloride 108 H Carbon Dioxide 25 Anion Gap 11 BUN 18 Creatinine 0.72 Est GFR ( Amer) > 60 Glucose 108 Calcium 8.8 Ferritin 207.00 Total Bilirubin 0.4 AST 82 H Alkaline Phosphatase 84 C-Reactive Protein 42.5 H Total Protein 7.4 Albumin 3.6 Blood Type A2subB POSITIVE Antibody Screen NEGATIVE Impressions: Chest X-Ray 01/30/20 17:29 IMPRESSION: Cannot exclude pneumonia in the left lower lung field. Chest/Abdomen CTA 01/30/20 18:25 IMPRESSION: 1. Bilateral ground-glass infiltrates suggestive of an atypical infectious/ inflammatory process, consistent with COVID-19. 2. No pulmonary embolus. No aortic aneurysm or dissection. Abdomen/Pelvis CT 01/31/20 00:00 IMPRESSION: 1. No acute intra-abdominal abnormality. 2. Improved bilateral peripheral ground-glass opacities. 3. Colonic diverticulosis without diverticulitis. Assessment and Plan - Diagnosis (1) Pneumonia due to COVID-19 virus Is this a current diagnosis for this admission?: Yes Plan: Remdesivir day 3 Dexamethasone day 3 Azithromycin therapeutic Lovenox as D-dimer is elevated (2) Acute respiratory failure with hypoxia Is this a current diagnosis for this admission?: Yes Plan: Secondary to COVID-19 pneumonia. SPO2 level maintained in the low 90s on room air today. (3) Abdominal pain Qualifiers: Abdominal location: generalized Qualified Code(s): R10.84 - Generalized abdominal pain Is this a current diagnosis for this admission?: Yes Plan: CT with contrast of the abdomen and pelvis was essentially unremarkable without anything to explain her pain. Improved at this point. Discontinue morphine as she has not required this yesterday. Continue PPI and Carafate for possible gastritis. (4) COPD (chronic obstructive pulmonary disease) Qualifiers: COPD type: chronic bronchitis Chronic bronchitis type: simple Qualified Code(s): J41.0 - Simple chronic bronchitis Is this a current diagnosis for this admission?: Yes Plan: Not acutely exacerbated. Albuterol inhaler as needed. (5) Transaminitis Is this a current diagnosis for this admission?: Yes Plan: Associated with viral infection. Transaminases are stable. (6) Diabetes mellitus Qualifiers: Diabetes mellitus type: type 2 Diabetes mellitus assisted insulin use: with assisted use Diabetes mellitus complication status: without complication Qualified Code(s): E11.9 - Type 2 diabetes mellitus without complications; Z79.4 - termite exterminator helper (current) use of insulin Is this a current diagnosis for this admission?: Yes Plan: Sliding scale insulin and Accu-Cheks. Metformin on hold. (7) Hypertension Qualifiers: Hypertension type: essential hypertension Qualified Code(s): I10 - Essential (primary) hypertension Is this a current diagnosis for this admission?: Yes Plan: amlodipine and lisinopril - Time Time Spent with patient: 15-24 minutes Anticipated Discharge Disposition: Home, Self Care Anticipated Discharge Timeframe: within 48 hours
[2020-02-02] MEDS: ZINC SULFATE 220 MG CAPSULE PO SCH (17:09)
[2020-02-02 17:43] LABS: APPEARANCE,URINE CLEAR; BILIRUBIN,URINE NEGATIVE (NEGATIVE); COLOR,URINE YELLOW; GLUCOSE, URINE NEGATIVE (NEGATIVE); KETONES,URINE NEGATIVE (NEGATIVE); LEUKOCYTE ESTERASE,URINE NEGATIVE (NEGATIVE); NITRITE,URINE NEGATIVE (NEGATIVE); PROTEIN,URINE NEGATIVE (NEGATIVE); URINE SPECIFIC GRAVITY 1.018
[2020-02-02] MEDS: ACETAMINOPHEN 325 MG TABLET PO PRN (20:00)
[2020-02-02] MEDS ORDERED: QUETIAPINE FUMARATE 100 MG TABLET PO SCH (22:00)
[2020-02-02] MEDS: REMDESIVIR 100 MG in NORMAL SALINE 250 ML IV SCH (22:29)
[2020-02-03] MEDS: ALBUTEROL SULFATE HFA (90 MCG/PUFF) 8 GM MDI IH SCH ×4 (00:18→17:33)
[2020-02-03 06:09] LABS: ABSOLUTE BASOPHILS # (AUTO) 0.2 10^3/uL (0.0-0.2); ABSOLUTE LYMPHOCYTES (AUTO) 3.7 10^3/uL (0.5-4.7); ABSOLUTE MONOCYTES (AUTO) 1.8 10^3/uL (0.1-1.4); ABSOLUTE NEUT (AUTO) 10.9 10^3/uL (1.7-8.2); BASOPHILS % (AUTO) 1.1 % (0-2); EOSINOPHILS % (AUTO) 0.1 % (0-6); LYMPHOCYTES % (AUTO) 22.5 % (13-45); MEAN CORPUSCULAR HEMOGLOBIN 27.7 pg (27.0-33.4); MEAN CORPUSCULAR HGB CONC 33.4 g/dL (32.0-36.0); MEAN CORPUSCULAR VOLUME 83 fl (80-97); PLATELET COUNT 533 10^3/uL (150-450); RED BLOOD COUNT 4.33 10^6/uL (3.72-5.28); RED CELL DISTRIBUTION WIDTH 14.2 % (11.5-14.0); SEGMENTED NEUTROPHILS % (AUTO) 65.3 % (42-78); TOTAL CELLS COUNTED % (AUTO) 100 %; WHITE BLOOD COUNT 16.6 10^3/uL (4.0-10.5)
[2020-02-03 06:34] LABS: ALBUMIN 3.5 g/dL (3.5-5.0); ALKALINE PHOSPHATASE 74 U/L (38-126); ANION GAP 9 (5-19); ASPARTATE AMINO TRANSFERASE 56 U/L (14-36); BILIRUBIN,DIRECT 0.2 mg/dL (0.0-0.4); BILIRUBIN,TOTAL 0.5 mg/dL (0.2-1.3); BLOOD UREA NITROGEN 17 mg/dL (7-20); C-REACTIVE PROTEIN 21.3 mg/L (<10.0); CARBON DIOXIDE 25 mmol/L (22-30); CHLORIDE 109 mmol/L (98-107); GLUCOSE 86 mg/dL (75-110); POTASSIUM 4.2 mmol/L (3.6-5.0)
[2020-02-03] MEDS: SUCRALFATE 1 GM TABLET PO SCH ×2 (06:38→14:04)
[2020-02-03] MEDS: GABAPENTIN 300 MG CAPSULE PO SCH ×2 (06:38→14:04)
[2020-02-03] MEDS: INSULIN LISPRO 100 UNIT/ML 3 ML VIAL SUBCUT SCH ×3 (07:35→16:18)
[2020-02-03] MEDS: PANTOPRAZOLE SODIUM 40 MG TABLET.DR PO SCH (07:44)
[2020-02-03] MEDS: DEXAMETHASONE SOD PHOSPHATE INJ 4 MG/1 ML VIAL IV SCH (09:12)
[2020-02-03] MEDS: ENOXAPARIN SODIUM INJ 100 MG/1 ML DISP.SYRIN SUBCUT SCH (09:13)
[2020-02-03] MEDS: ASCORBIC ACID 500 MG TABLET PO SCH ×2 (09:14→17:32)
[2020-02-03] MEDS: VARENICLINE TARTRATE 1 MG TABLET PO SCH ×2 (09:15→17:33)
[2020-02-03] MEDS: ATORVASTATIN CALCIUM 40 MG TABLET PO SCH (09:16)
[2020-02-03] MEDS: CHOLECALCIFEROL (D3) 1,000 UNIT (25 MCG) TABLET PO SCH (09:16)
[2020-02-03] MEDS: ROPINIROLE HCL 0.25 MG TABLET PO SCH ×2 (09:16→17:32)
[2020-02-03] MEDS: LISINOPRIL 10 MG TABLET PO SCH (09:16)
[2020-02-03] MEDS: AMLODIPINE BESYLATE 10 MG TABLET PO SCH (09:16)
[2020-02-03] MEDS: POLYETHYLENE GLYCOL 3350 POWDER 17 GM/1 PACKET PO SCH (09:16)
--- NOTE | 2020-02-03 10:37 | PDOC DISCHARGE SUMMARY ---
Impression - Admit/DC Date/PCP Admission Date/Primary Care Provider: 01/30/20 19:51 TIFFANY GEORGE MD Discharge Date: 02/03/20 - Discharge Diagnosis (1) Pneumonia due to COVID-19 virus Is this a current diagnosis for this admission?: Yes (2) Acute respiratory failure with hypoxia Is this a current diagnosis for this admission?: Yes (3) Abdominal pain Is this a current diagnosis for this admission?: Yes (4) COPD (chronic obstructive pulmonary disease) Is this a current diagnosis for this admission?: Yes (5) Transaminitis Is this a current diagnosis for this admission?: Yes (6) Diabetes mellitus Is this a current diagnosis for this admission?: Yes (7) Hypertension Is this a current diagnosis for this admission?: Yes - Additional Information Discharge Diet: As Tolerated, Regular Discharge Activity: Slowly Increase Activity Referrals: TIFFANY GEORGE MD [Primary Care Provider] - Follow up as needed Prescriptions: Sucralfate [Carafate 1 gm Tablet] 1 gm PO AC 20 Days #60 tablet Prednisone [Deltasone 10 mg Tablet] See Protocol PO DAILY 5 Days #7 tablet Ascorbic Acid [Vitamin C 500 mg Tablet] 1,000 mg PO BID 10 Days #40 tablet Rivaroxaban [Xarelto 10 mg Tablet] 10 mg PO DAILY #30 tablet Zinc Sulfate [Zinc-220 Capsule] 220 mg PO DAILY #10 capsule Home Medications: Albuterol Sulfate [Albuterol Sulfate Hfa] 2 puff IH Q4HP PRN 01/31/20 Amlodipine Besylate [Norvasc 10 mg Tablet] 10 mg PO DAILY 01/31/20 Atorvastatin Calcium [Lipitor 40 mg Tablet] 40 mg PO DAILY 01/31/20 Ergocalciferol (Vitamin D2) [Drisdol 50,000 unit (1.25MG) Capsule] 1 cap PO ASDIR PRN 01/31/20 Gabapentin [Neurontin 300 mg Capsule] 300 mg PO Q8 01/31/20 Lisinopril [Prinivil 10 mg Tablet] 10 mg PO DAILY 01/31/20 Metformin HCl [Metformin ER Osmotic] 1,000 mg PO DAILY 01/31/20 Pantoprazole Sodium [Protonix [address] Tablet] 40 mg PO DAILY 01/31/20 Ropinirole HCl [Requip 0.25 mg Tablet] 0.25 mg PO BID 12/01/20 Varenicline Tartrate [Chantix 1 mg Tablet] 1 mg PO BID 01/31/20 Ascorbic Acid [Vitamin C 500 mg Tablet] 1,000 mg PO BID 10 Days #40 tablet 02/03/20 Prednisone [Deltasone 10 mg Tablet] See Protocol PO DAILY 5 Days #7 tablet 02/03/20 Rivaroxaban [Xarelto 10 mg Tablet] 10 mg PO DAILY #30 tablet 02/03/20 Sucralfate [Carafate 1 gm Tablet] 1 gm PO AC 20 Days #60 tablet 02/03/20 Zinc Sulfate [Zinc-220 Capsule] 220 mg PO DAILY #10 capsule 02/03/20 History of Present Illiness History of Present Illness: According to admitting provider: MARCEL GAVIRIA is a 69 year old female who is a very poor historian but she knows she has diabetes and COPD, she does not know what medicine she takes. She presents today to the ER because of progressive shortness of breath. She said her symptoms started about a week ago and on 22 January she went to her primary care provider's office, Dr. George at [facility] internal medicine in [place], where she got tested and the results were positive for coronavirus. Her shortness of breath started about 5 days ago. Initially her symptoms were just nausea and 1 or 2 episodes of vomiting. Shortness of breath has been increasing and so she called her doctor's office today and they recommended she come to the hospital. Her pulse oximetry on room air at her initial presentation was 81%. Patient says she was febrile at home with a temperature of 101 Fahrenheit but was afebrile here. She had a possible opacity on her chest x-ray of the left lower lobe, chest CT confirmed bilateral groundglass opacities in the lower lobes. Prior to her initial presentation here, she has not received any outpatient treatment. Pulse oximetry currently 95% on 4 L. Hospital Course Hospital Course: (1) Pneumonia due to COVID-19 virus Is this a current diagnosis for this admission?: Yes Plan: Completes 5 days of remdesivir today Dexamethasone day 5 Completed azithromycin Received therapeutic Lovenox while in the hospital. CTA chest showed no evidence of PE but showed pneumonia bilateral. D-dimer has improved but as D-dimer is still above 1, I will discharge her on thromboprophylactic dose of Xarelto for 1 month to prevent VTE given high risk with Covid. Inflammatory markers have all trended down including CRP and ferritin Brief course of prednisone for 5 days. Discharged with vitamin C, zinc and vitamin D tablets (2) Acute respiratory failure with hypoxia Is this a current diagnosis for this admission?: Yes Plan: Secondary to COVID-19 pneumonia. Initially required low-flow oxygen up to 4 L at a point but has been on room air with adequate SPO2 in the mid to high 90s for almost 3 days now. SPO2 remains adequate on ambulation. Hypoxia has resolved at this point. (3) Abdominal pain Qualifiers: Abdominal location: generalized Qualified Code(s): R10.84 - Generalized abdominal pain Is this a current diagnosis for this admission?: Yes Plan: CT with contrast of the abdomen and pelvis was essentially unremarkable without anything to explain her pain. Continue PPI. She showed response to Carafate so possible gastritis. We will send her home with Carafate prescription. Has been on bowel regimen for constipation. (4) COPD (chronic obstructive pulmonary disease) Qualifiers: COPD type: chronic bronchitis Chronic bronchitis type: simple Qualified Code(s): J41.0 - Simple chronic bronchitis Is this a current diagnosis for this admission?: Yes Plan: Not acutely exacerbated. (5) Transaminitis Is this a current diagnosis for this admission?: Yes Plan: Associated with viral infection. Transaminases are improved. (6) Diabetes mellitus Qualifiers: Diabetes mellitus type: type 2 Diabetes mellitus regional intermodal truck driver insulin use: with regional intermodal truck driver use Diabetes mellitus complication status: without complication Qualified Code(s): E11.9 - Type 2 diabetes mellitus without complications; Z79.4 - local company intermodal truck driver (current) use of insulin Is this a current diagnosis for this admission?: Yes Plan: Stable. Resumed Metformin on discharge (7) Hypertension Qualifiers: Hypertension type: essential hypertension Qualified Code(s): I10 - Essential (primary) hypertension Is this a current diagnosis for this admission?: Yes Plan: amlodipine and lisinopril Physical Exam Vital Signs: Temp Pulse Resp BP Pulse Ox 98.2 F 70 19 131/71 H 94 02/03/20 07:33 02/03/20 07:33 02/03/20 07:33 02/03/20 07:33 02/03/20 07:33 Intake & Output 02/02/20 02/03/20 02/04/20 06:59 06:59 06:59 Intake Total 500 650 Output Total 200 Balance 500 450 Weight 83.1 kg 82 kg General appearance: PRESENT: no acute distress, cooperative Neck exam: ABSENT: JVD Respiratory exam: PRESENT: clear to auscultation tita, unlabored. ABSENT: accessory muscle use, retraction, tachypnea Musculoskeletal exam: PRESENT: ambulatory Neurological exam: PRESENT: alert, awake, oriented to person, oriented to place, oriented to time, oriented to situation Psychiatric exam: ABSENT: agitated, anxious Focused psych exam: ABSENT: pressured speech Results Laboratory Results: WBC 16.6 10^3/uL (4.0-10.5) H 02/03/20 05:07 RBC 4.33 10^6/uL (3.72-5.28) 02/03/20 05:07 Hgb 12.0 g/dL (12.0-15.5) 02/03/20 05:07 Hct 36.0 % (36.0-47.0) 02/03/20 05:07 MCV 83 fl (80-97) 02/03/20 05:07 MCH 27.7 pg (27.0-33.4) 02/03/20 05:07 MCHC 33.4 g/dL (32.0-36.0) 02/03/20 05:07 RDW 14.2 % (11.5-14.0) H 02/03/20 05:07 Plt Count 533 10^3/uL (150-450) H 02/03/20 05:07 Lymph % (Auto) 22.5 % (13-45) 02/03/20 05:07 Ray % (Auto) 11.0 % (3-13) 02/03/20 05:07 Eos % (Auto) 0.1 % (0-6) 02/03/20 05:07 Baso % (Auto) 1.1 % (0-2) 02/03/20 05:07 Absolute Neuts (auto) 10.9 10^3/uL (1.7-8.2) H 02/03/20 05:07 Absolute Lymphs (auto) 3.7 10^3/uL (0.5-4.7) 02/03/20 05:07 Absolute Monos (auto) 1.8 10^3/uL (0.1-1.4) H 02/03/20 05:07 Absolute Eos (auto) 0.0 10^3/uL (0.0-0.6) 02/03/20 05:07 Absolute Basos (auto) 0.2 10^3/uL (0.0-0.2) 02/03/20 05:07 Seg Neutrophils % 65.3 % (42-78) 02/03/20 05:07 D-Dimer 1.42 ug/mL (0.00-0.50) H 02/03/20 05:07 Sodium 143.4 mmol/L (137-145) 02/03/20 05:07 Potassium 4.2 mmol/L (3.6-5.0) 02/03/20 05:07 Chloride 109 mmol/L (98-107) H 02/03/20 05:07 Carbon Dioxide 25 mmol/L (22-30) 02/03/20 05:07 Anion Gap 9 (5-19) 02/03/20 05:07 BUN 17 mg/dL (7-20) 02/03/20 05:07 Creatinine 0.69 mg/dL (0.52-1.25) 02/03/20 05:07 Est GFR ( Amer) > 60 (>60) 02/03/20 05:07 Est GFR (MDRD) Non-Af > 60 (>60) 02/03/20 05:07 Glucose 86 mg/dL (75-110) 02/03/20 05:07 POC Glucose 82 mg/dL (70-110) 02/03/20 07:34 Calcium 9.0 mg/dL (8.4-10.2) 02/03/20 05:07 Ferritin 157.00 ng/mL (11.1-264.0) 02/03/20 05:07 Total Bilirubin 0.5 mg/dL (0.2-1.3) 02/03/20 05:07 Direct Bilirubin 0.2 mg/dL (0.0-0.4) 02/03/20 05:07 Neonat Total Bilirubin Not Reportable 02/03/20 05:07 Neonat Direct Bilirubin Not Reportable 02/03/20 05:07 Neonat Indirect Bili Not Reportable 02/03/20 05:07 AST 56 U/L (14-36) H 02/03/20 05:07 ALT 71 U/L (<35) H 02/03/20 05:07 Alkaline Phosphatase 74 U/L (38-126) 02/03/20 05:07 C-Reactive Protein 21.3 mg/L (<10.0) H 02/03/20 05:07 Total Protein 7.0 g/dL (6.3-8.2) 02/03/20 05:07 Albumin 3.5 g/dL (3.5-5.0) 02/03/20 05:07 Lipase 47.0 U/L (23-300) 01/31/20 05:30 Urine Color YELLOW 02/02/20 17:15 Urine Appearance CLEAR 02/02/20 17:15 Urine pH 6.0 (5.0-9.0) 02/02/20 17:15 Ur Specific [place] 1.018 02/02/20 17:15 Urine Protein NEGATIVE mg/dL (NEGATIVE) 02/02/20 17:15 Urine Glucose (UA) NEGATIVE mg/dL (NEGATIVE) 02/02/20 17:15 Urine Ketones NEGATIVE mg/dL (NEGATIVE) 02/02/20 17:15 Urine Blood NEGATIVE (NEGATIVE) 02/02/20 17:15 Urine Nitrite NEGATIVE (NEGATIVE) 02/02/20 17:15 Urine Bilirubin NEGATIVE (NEGATIVE) 02/02/20 17:15 Urine Urobilinogen 2.0 mg/dL (<2.0) H 02/02/20 17:15 Ur Leukocyte Esterase NEGATIVE (NEGATIVE) 02/02/20 17:15 Urine WBC (Auto) 0 /HPF 02/02/20 17:15 Urine RBC (Auto) 0 /HPF 02/02/20 17:15 Squamous Epi Cells Auto 4 /HPF 02/02/20 17:15 Urine Mucus (Auto) RARE /LPF 02/02/20 17:15 Urine Ascorbic Acid 40 (NEGATIVE) H 02/02/20 17:15 Blood Type A2subB POSITIVE 01/31/20 17:15 Blood Type Confirm A2subB POSITIVE 01/31/20 19:34 Antibody Screen NEGATIVE 01/31/20 17:15 Antibody Identification Cold Antibody 01/31/20 17:15 Antigen Identification A1 Antigen - NEGATIVE 01/31/20 17:15 Impressions: Chest X-Ray 01/30/20 17:29 IMPRESSION: Cannot exclude pneumonia in the left lower lung field. Chest/Abdomen CTA 01/30/20 18:25 IMPRESSION: 1. Bilateral ground-glass infiltrates suggestive of an atypical infectious/ inflammatory process, consistent with COVID-19. 2. No pulmonary embolus. No aortic aneurysm or dissection. Abdomen/Pelvis CT 01/31/20 00:00 IMPRESSION: 1. No acute intra-abdominal abnormality. 2. Improved bilateral peripheral ground-glass opacities. 3. Colonic diverticulosis without diverticulitis. Plan Time Spent: Greater than 30 Minutes Stroke Is this a Stroke Patient?: No Acute Heart Failure Is this a Heart Failure Patient?: No
[2020-02-03 15:20] VITALS: BP 139/78
[2020-02-03] MEDS ORDERED: REMDESIVIR 100 MG in NORMAL SALINE 250 ML IV ONE (17:00)
[2020-02-03] MEDS: ZINC SULFATE 220 MG CAPSULE PO SCH (17:32)
== END 2020-02-03 17:53 | disposition home or self-care (01) | DRG 177 ==
LOC: ER 17:10 → EH 19:51 → 3W 22:16
PROVIDERS: ADMIT Family Medicine; ATTEND Internal Medicine
PROC: XW033E5 Introduction of Remdesivir Anti-infective into Peripheral Vein, Percutaneous Approach, New Technology Group 5 (ICD-10-PCS; principal; 2020-01-31)
DX: U07.1 COVID-19 (principal); J12.89 Other viral pneumonia; J96.01 Acute respiratory failure with hypoxia; J44.9 Chronic obstructive pulmonary disease, unspecified; E11.9 Type 2 diabetes mellitus without complications; I10 Essential (primary) hypertension; E78.5 Hyperlipidemia, unspecified; Z96.651 Presence of right artificial knee joint; E66.9 Obesity, unspecified; R74.01 Elevation of levels of liver transaminase levels; R10.84 Generalized abdominal pain; Z79.84 Long term (current) use of oral hypoglycemic drugs; Z79.899 Other long term (current) drug therapy; Z87.891 Personal history of nicotine dependence; Z68.34 Body mass index [BMI] 34.0-34.9, adult
CPT/HCPCS: 36415; 71045; 71275; 74177; 80053; 81001; 82728; 82962; 83690; 85025; 85379; 86140; 86850; 86870; 86900; 86901; 86902; 93005; 93010; 94640; 96365; 96375; 99285; J0456; J0696; J1100; J1650; J1815; J2270; J2405; J3475; J3490; J7050; J7060